=== PATIENT | male | born 1995 | race Caucasian/White ===

== ENCOUNTER → 2016-03-19 | Outpatient (CLI) | payer OTHER ==
[2016-03-19 11:27] LABS: LYMPH # 3.3 K/mm3 (0.7-4.5); LYMPH % 51.3 % (10-50)
[2016-03-19 14:40] LABS: BUN 15 mg/dL (7-18)
[2016-03-19 14:41] LABS: GFR (ESTIMATED) 123 ML/MIN (>60)
[2016-03-19 16:20] LABS: NEUTROPHILS 36 % (42-76)
== END ==
LOC: LAB 10:54
PROVIDERS: Internal Medicine Hematology & Oncology
DX: Z94.81 Bone marrow transplant status (principal)

== ENCOUNTER → 2016-04-26 | Outpatient (CLI) | payer OTHER ==
[2016-04-26 10:55] LABS: HEMOGLOBIN 15.4 g/dL (14.1-18.0); LYMPH # 2.2 K/mm3 (0.7-4.5); LYMPH % 41.1 % (10-50)
[2016-04-26 12:43] LABS: BUN 13 mg/dL (7-18)
[2016-04-26 12:45] LABS: GFR (ESTIMATED) 123 ML/MIN (>60)
== END ==
LOC: LAB 10:39
PROVIDERS: Internal Medicine Hematology & Oncology
DX: Z94.81 Bone marrow transplant status (principal)

== ENCOUNTER → 2016-11-24 | Outpatient (CLI) | payer OTHER ==
[2016-11-24 10:10] LABS: HEMOGLOBIN 14.3 g/dL (14.1-18.0); LYMPH # 1.7 K/mm3 (0.7-4.5)
[2016-11-24 10:23] LABS: BUN 12 mg/dL (7-18)
[2016-11-24 10:24] LABS: GFR (ESTIMATED) 107 ML/MIN (>60)
== END ==
LOC: LAB 10:00
PROVIDERS: Internal Medicine Hematology & Oncology
DX: Z94.81 Bone marrow transplant status (principal)

== ENCOUNTER → 2016-12-23 | Outpatient (CLI) | payer OTHER ==
[2016-12-23 14:15] LABS: LYMPH # 1.9 K/mm3 (0.7-4.5); LYMPH % 35.7 % (10-50)
[2016-12-23 14:26] LABS: BUN 13 mg/dL (7-18)
[2016-12-23 14:30] LABS: GFR (ESTIMATED) 122 ML/MIN (>60)
== END ==
LOC: LAB 14:00
PROVIDERS: Internal Medicine Hematology & Oncology
DX: Z94.81 Bone marrow transplant status (principal)

== ENCOUNTER → 2016-12-30 | Outpatient (CLI) | payer OTHER ==
[2016-12-30 11:21] LABS: HEMOGLOBIN 14.2 g/dL (14.1-18.0); LYMPH # 1.6 K/mm3 (0.7-4.5); LYMPH % 42.9 % (10-50)
[2016-12-30 11:28] LABS: BUN 11 mg/dL (7-18); GFR (ESTIMATED) 94 ML/MIN (>60)
== END ==
LOC: LAB 11:03
PROVIDERS: Internal Medicine Hematology & Oncology
DX: Z94.81 Bone marrow transplant status (principal)

== ENCOUNTER → 2017-01-17 | Outpatient (CLI) | payer OTHER ==
[2017-01-17 10:02] LABS: HEMOGLOBIN 14.5 g/dL (14.1-18.0); LYMPH # 1.5 K/mm3 (0.7-4.5); LYMPH % 28.4 % (10-50)
[2017-01-17 10:17] LABS: BUN 12 mg/dL (7-18)
[2017-01-17 10:18] LABS: GFR (ESTIMATED) 94 ML/MIN (>60)
== END ==
LOC: LAB 09:48
PROVIDERS: Internal Medicine Hematology & Oncology
DX: Z94.81 Bone marrow transplant status (principal)

== ENCOUNTER → 2017-02-14 | Outpatient (CLI) | payer OTHER ==
[2017-02-14 15:01] LABS: HEMOGLOBIN 13.9 g/dL (14.1-18.0); LYMPH # 1.8 K/mm3 (0.7-4.5); LYMPH % 36.1 % (10-50)
[2017-02-14 15:13] LABS: BUN 12 mg/dL (7-18)
[2017-02-14 15:14] LABS: GFR (ESTIMATED) 94 ML/MIN (>60)
== END ==
LOC: LAB 14:50
PROVIDERS: Internal Medicine Hematology & Oncology
DX: Z94.81 Bone marrow transplant status (principal)